=== PATIENT | male | born 1940 | race Two or more races ===

== ENCOUNTER 2024-02-12 05:47 | Inpatient (IN) | payer SELFPAY ==
[~2024-02-12] VITALS: Ht 170.2 cm; Wt 88.0 kg
[2024-02-12] VITALS (8 sets, daily range): BP systolic 100–116; BP diastolic 50–56; TEMP 97.5–98.6; O2SAT 97–100
[2024-02-12] MEDS: LIDOCAINE 2% 5ML JELLY UROJET TOP ONE (07:50)
[2024-02-12 09:01] LABS: BASO % 0.7 % (0.0-1.0); EOS # 0.2 10^3/uL (0.0-0.5); EOS % 3.7 % (0.0-3.0); HEMATOCRIT 26.3 % (42.0-52.0); HEMOGLOBIN 8.5 g/dl (13.5-17.5); LYMPH # 1.1 10^3/uL (1.5-5.0); LYMPH % 20.2 % (24.0-44.0); MEAN CORPUSCULAR HEMOGLOBIN 26.2 pg (27.0-33.0); MEAN CORPUSCULAR HGB CONC 32.3 g/dl (32.0-36.5); MEAN CORPUSCULAR VOLUME 81.2 fl (80.0-96.0); MONO # 0.8 10^3/uL (0.0-0.8); MONO % 14.7 % (2.0-8.0); NEUTROPHILS # 3.3 10^3/uL (1.5-8.5); NEUTROPHILS % 60.3 % (36.0-66.0); PLATELET COUNT, AUTOMATED 241 10^3/uL (150-450); RED BLOOD COUNT 3.24 10^6/uL (4.30-6.10); WHITE BLOOD COUNT 5.5 10^3/uL (4.0-10.0)
[2024-02-12 09:25] LABS: BLOOD UREA NITROGEN 39 MG/DL (9-23); CALCIUM LEVEL 9.1 MG/DL (8.3-10.6); CARBON DIOXIDE LEVEL 24 MMOL/L (20-31); CHLORIDE LEVEL 105 MMOL/L (98-107); CREATININE FOR GFR 1.79 MG/DL (0.70-1.30); GLOMERULAR FILTRATION RATE 38.6 (>35); GLUCOSE, FASTING 96 MG/DL (74-106); POTASSIUM SERUM 4.9 MMOL/L (3.5-5.1); SODIUM LEVEL 135 MMOL/L (136-145)
[2024-02-12 09:33] LABS: INR 1.04; PROTHROMBIN TIME 13.3 SECONDS (12.5-14.5)
[2024-02-12] MEDS ORDERED: ISOVUE-370 76% 100ML VIAL As Ordered ONE (09:50)
[2024-02-12 11:22] LABS: ALBUMIN 3.4 G/DL (3.2-5.2); ALKALINE PHOSPHATASE 191 U/L (46-116); ALT/SGPT 15 U/L (7.0-40); AST/SGOT 24 U/L (<34); BILIRUBIN,DIRECT < 0.1 MG/DL (<0.4); BILIRUBIN,TOTAL 0.2 MG/DL (0.3-1.2); TOTAL PROTEIN 6.3 G/DL (5.7-8.2)
[2024-02-12] MEDS ORDERED: GLIM4TAB5 PO (11:25)
[2024-02-12] MEDS ORDERED: METF10004 PO (11:25)
[2024-02-12] MEDS ORDERED: ASPI81TA26 PO (11:25)
[2024-02-12] MEDS ORDERED: HOME MED LIST COMPLETE! XX SCH ×2 (11:30→14:35)
[2024-02-12] MEDS ORDERED: INSULIN LISPRO (NovoLOG) PER UNIT SC SCH (12:00)
[2024-02-12 14:22] LABS: HEMATOCRIT 27.2 % (42.0-52.0); HEMOGLOBIN 8.7 g/dl (13.5-17.5); MEAN CORPUSCULAR HEMOGLOBIN 26.2 pg (27.0-33.0); MEAN CORPUSCULAR VOLUME 81.9 fl (80.0-96.0); PLATELET COUNT, AUTOMATED 212 10^3/uL (150-450); RED BLOOD COUNT 3.32 10^6/uL (4.30-6.10); WHITE BLOOD COUNT 4.1 10^3/uL (4.0-10.0)
[2024-02-12] MEDS ORDERED: CIPR250T3 PO (14:25)
[2024-02-12] MEDS ORDERED: SODI325T9 PO (14:29)
[2024-02-12] MEDS ORDERED: DUTA1CAP10 PO (14:29)
[2024-02-12] MEDS ORDERED: RAMI2.5C42 PO (14:29)
[2024-02-12 14:40] LABS: CALCIUM LEVEL 8.9 MG/DL (8.3-10.6); CREATININE FOR GFR 1.64 MG/DL (0.70-1.30); GLOMERULAR FILTRATION RATE 42.7 (>35); POTASSIUM SERUM 4.1 MMOL/L (3.5-5.1)
[2024-02-12 15:03] LABS: THYROID STIMULATING HORMONE 0.211 uIU/ML (0.55-4.78)
[2024-02-12 15:04] LABS: FREE T4 1.38 NG/DL (0.89-1.76)
[2024-02-12] MEDS: INSULIN LISPRO (NovoLOG) PER UNIT SC SCH (17:15)
[2024-02-12 21:54] LABS: HEMATOCRIT 26.1 % (42.0-52.0); HEMOGLOBIN 8.5 g/dl (13.5-17.5); MEAN CORPUSCULAR HEMOGLOBIN 26.2 pg (27.0-33.0); MEAN CORPUSCULAR HGB CONC 32.6 g/dl (32.0-36.5); MEAN CORPUSCULAR VOLUME 80.6 fl (80.0-96.0); PLATELET COUNT, AUTOMATED 239 10^3/uL (150-450); RED BLOOD COUNT 3.24 10^6/uL (4.30-6.10); WHITE BLOOD COUNT 6.3 10^3/uL (4.0-10.0)
[2024-02-12 22:21] LABS: HEMOGLOBIN A1c 6.5 % (4.0-6.0)
[2024-02-13] VITALS (29 sets, daily range): BP systolic 114–130; BP diastolic 58–61; TEMP 97.3–99.3; O2SAT 95–100
[2024-02-13 06:40] LABS: HEMATOCRIT 25.1 % (42.0-52.0); MEAN CORPUSCULAR HEMOGLOBIN 25.9 pg (27.0-33.0); MEAN CORPUSCULAR HGB CONC 31.9 g/dl (32.0-36.5); MEAN CORPUSCULAR VOLUME 81.2 fl (80.0-96.0); PLATELET COUNT, AUTOMATED 225 10^3/uL (150-450); RED BLOOD COUNT 3.09 10^6/uL (4.30-6.10); WHITE BLOOD COUNT 5.7 10^3/uL (4.0-10.0)
[2024-02-13 07:08] LABS: CALCIUM LEVEL 8.9 MG/DL (8.3-10.6); CREATININE FOR GFR 1.78 MG/DL (0.70-1.30); GLOMERULAR FILTRATION RATE 38.9 (>35); MAGNESIUM LEVEL 2.1 MG/DL (1.8-2.4); POTASSIUM SERUM 4.3 MMOL/L (3.5-5.1)
[2024-02-13] MEDS: BISACODYL 10MG SUPP PR ONE (17:50)
[2024-02-13] MEDS: SENNA 8.6 MG TAB (SENOKOT) PO SCH (20:41)
[2024-02-14] VITALS (15 sets, daily range): BP systolic 112–159; BP diastolic 55–70; TEMP 97.8–98.8; O2SAT 95–100
[2024-02-14 05:19] LABS: HEMATOCRIT 25.3 % (42.0-52.0); MEAN CORPUSCULAR HEMOGLOBIN 25.6 pg (27.0-33.0); MEAN CORPUSCULAR HGB CONC 31.6 g/dl (32.0-36.5); MEAN CORPUSCULAR VOLUME 80.8 fl (80.0-96.0); PLATELET COUNT, AUTOMATED 223 10^3/uL (150-450); RED BLOOD COUNT 3.13 10^6/uL (4.30-6.10); WHITE BLOOD COUNT 5.7 10^3/uL (4.0-10.0)
[2024-02-14 05:42] LABS: CALCIUM LEVEL 8.4 MG/DL (8.3-10.6); CREATININE FOR GFR 1.59 MG/DL (0.70-1.30); GLOMERULAR FILTRATION RATE 44.3 (>35); MAGNESIUM LEVEL 1.9 MG/DL (1.8-2.4)
[2024-02-14] MEDS: ANALGESIC BALM CRM 3OZ TOP PRN (10:13)
[2024-02-14 11:06] LABS: PERCENT SATURATION 6.8 % (19.7-50.0)
[2024-02-14 11:09] LABS: FERRITIN 92.7 NG/ML (10.5-307.3)
[2024-02-14] MEDS: ACETAMINOPHEN 325 MG TAB PO SCH (11:13)
[2024-02-14] MEDS: oxyCODONE 5MG TAB PO ONE ×2 (11:20→15:21)
[2024-02-14 11:24] LABS: C REACTIVE PROTEIN QUANTITATIV 4.8 MG/DL (<1.0)
[2024-02-14 11:32] LABS: ERYTHROCYTE SEDIMENTATION RATE 42 mm/hr (0-20)
[2024-02-14] MEDS: LR 500 ML IV SCH (12:04)
[2024-02-14] MEDS: IRON SUCROSE 100MG 5ML VIAL IV SCH (15:21)
[2024-02-14 15:51] LABS: URIC ACID 5.9 MG/DL (3.7-9.2)
[2024-02-14 17:24] LABS: CALCIUM LEVEL 8.3 MG/DL (8.3-10.6); CREATININE FOR GFR 1.49 MG/DL (0.70-1.30); GLOMERULAR FILTRATION RATE 47.7 (>35)
[2024-02-14] MEDS ORDERED: oxyCODONE 5MG TAB PO PRN (18:40)
[2024-02-15 04:00] VITALS: BP 127/61; TEMP 97.8; O2SAT 98
[2024-02-15 06:51] LABS: HEMATOCRIT 25.4 % (42.0-52.0); HEMOGLOBIN 8.1 g/dl (13.5-17.5); MEAN CORPUSCULAR HEMOGLOBIN 25.7 pg (27.0-33.0); MEAN CORPUSCULAR HGB CONC 31.9 g/dl (32.0-36.5); MEAN CORPUSCULAR VOLUME 80.6 fl (80.0-96.0); PLATELET COUNT, AUTOMATED 243 10^3/uL (150-450); RED BLOOD COUNT 3.15 10^6/uL (4.30-6.10); WHITE BLOOD COUNT 6.1 10^3/uL (4.0-10.0)
[2024-02-15 07:21] LABS: CALCIUM LEVEL 8.6 MG/DL (8.3-10.6); CREATININE FOR GFR 1.46 MG/DL (0.70-1.30); GLOMERULAR FILTRATION RATE 48.9 (>35); MAGNESIUM LEVEL 1.8 MG/DL (1.8-2.4); POTASSIUM SERUM 4.2 MMOL/L (3.5-5.1)
[2024-02-15 08:00] VITALS: BP 128/59; TEMP 97.8; O2SAT 95
[2024-02-15 12:00] VITALS: BP 129/60; TEMP 97.8; O2SAT 97
[2024-02-15] MEDS: MIRALAX *UNIT DOSE* 17GM PACKET PO PRN (14:32)
[2024-02-15] MEDS: predniSONE 20 MG TAB PO SCH (14:33)
[2024-02-15 15:48] LABS: PSA % FREE UNABLE TO CALCULATE % (calc) (>25); PSA FREE < 0.1 ng/mL; PSA TOTAL 0.1 ng/mL (< OR = 4.0)
[2024-02-15 16:00] VITALS: BP 133/60; TEMP 98.4; O2SAT 91
[2024-02-15] MEDS: BISACODYL 10MG SUPP PR PRN (19:55)
[2024-02-15 19:57] VITALS: BP 106/58; TEMP 98; O2SAT 96
[2024-02-16] VITALS (7 sets, daily range): BP systolic 100–129; BP diastolic 49–74; TEMP 97.6–98.2; O2SAT 94–99
[2024-02-16 06:42] LABS: HEMATOCRIT 25.3 % (42.0-52.0); HEMOGLOBIN 8.2 g/dl (13.5-17.5); MEAN CORPUSCULAR HEMOGLOBIN 25.9 pg (27.0-33.0); MEAN CORPUSCULAR HGB CONC 32.4 g/dl (32.0-36.5); MEAN CORPUSCULAR VOLUME 79.8 fl (80.0-96.0); PLATELET COUNT, AUTOMATED 275 10^3/uL (150-450); RED BLOOD COUNT 3.17 10^6/uL (4.30-6.10); WHITE BLOOD COUNT 7.4 10^3/uL (4.0-10.0)
[2024-02-16 07:18] LABS: CALCIUM LEVEL 8.8 MG/DL (8.3-10.6); CREATININE FOR GFR 1.36 MG/DL (0.70-1.30); MAGNESIUM LEVEL 1.9 MG/DL (1.8-2.4); POTASSIUM SERUM 4.3 MMOL/L (3.5-5.1)
[2024-02-16] MEDS: FINASTERIDE 5MG TAB PO SCH (16:19)
[2024-02-16] MEDS: TAMSULOSIN 0.4 MG CAP PO SCH (16:19)
[2024-02-16] MEDS: FERROUS GLUCONATE 324 MG TAB PO ONE (16:45)
[2024-02-16] MEDS: GLIMEPIRIDE 2 MG TAB PO SCH (20:51)
[2024-02-17] VITALS: BP 107/57; TEMP 98.2; O2SAT 97
[2024-02-17 04:00] VITALS: BP 112/58; TEMP 98.6; O2SAT 100
[2024-02-17 07:47] LABS: HEMATOCRIT 24.1 % (42.0-52.0); HEMOGLOBIN 7.7 g/dl (13.5-17.5); MEAN CORPUSCULAR HEMOGLOBIN 25.9 pg (27.0-33.0); MEAN CORPUSCULAR VOLUME 81.1 fl (80.0-96.0); PLATELET COUNT, AUTOMATED 279 10^3/uL (150-450); RED BLOOD COUNT 2.97 10^6/uL (4.30-6.10); WHITE BLOOD COUNT 7.6 10^3/uL (4.0-10.0)
[2024-02-17 08:00] VITALS: BP 107/55; TEMP 97.4; O2SAT 93
[2024-02-17 08:10] LABS: CALCIUM LEVEL 8.7 MG/DL (8.3-10.6); CHOLESTEROL RISK RATIO 3.21 (<5); CREATININE FOR GFR 1.44 MG/DL (0.70-1.30); GLOMERULAR FILTRATION RATE 49.6 (>35); HDL CHOLESTEROL 43.6 MG/DL (>40); LDL CHOLESTEROL 75.8 MG/DL (<100); NON-HDL-C 96.4 MG/DL; POTASSIUM SERUM 3.9 MMOL/L (3.5-5.1)
[2024-02-17] MEDS: FERROUS SULFATE 325MG TAB PO SCH (09:04)
[2024-02-17] MEDS: LIDOCAINE 5% (LIDODERM) PATCH TD SCH (10:49)
[2024-02-17 12:00] VITALS: BP 116/68; TEMP 97.9; O2SAT 98
[2024-02-17 16:00] VITALS: BP 111/53; TEMP 97.8; O2SAT 94
[2024-02-17 20:15] VITALS: BP 110/54; TEMP 98.8; O2SAT 99
[2024-02-17] MEDS: METHOCARBAMOL 1,000 MG/10 ML VIAL IV ONE (20:56)
[2024-02-17] MEDS ORDERED: PILL CUTTER 1 EACH XX PRN (23:45)
[2024-02-18] VITALS (9 sets, daily range): BP systolic 120–139; BP diastolic 58–67; TEMP 97.7–98.6; O2SAT 96–100
[2024-02-18] MEDS: oxyCODONE 5MG TAB PO SCH (00:11)
[2024-02-18] MEDS ORDERED: methocarbamoL 500 MG TAB PO PRN (02:00)
[2024-02-18 06:43] LABS: HEMATOCRIT 24.2 % (42.0-52.0); HEMOGLOBIN 7.7 g/dl (13.5-17.5); MEAN CORPUSCULAR HGB CONC 31.8 g/dl (32.0-36.5); MEAN CORPUSCULAR VOLUME 81.8 fl (80.0-96.0); PLATELET COUNT, AUTOMATED 291 10^3/uL (150-450); RED BLOOD COUNT 2.96 10^6/uL (4.30-6.10); WHITE BLOOD COUNT 7.3 10^3/uL (4.0-10.0)
[2024-02-18 07:05] LABS: CALCIUM LEVEL 9.1 MG/DL (8.3-10.6); CREATININE FOR GFR 1.36 MG/DL (0.70-1.30); POTASSIUM SERUM 4.1 MMOL/L (3.5-5.1)
[2024-02-19] VITALS (8 sets, daily range): BP systolic 102–137; BP diastolic 45–69; TEMP 97.7–98.6; O2SAT 95–99
[2024-02-19 05:50] LABS: HEMATOCRIT 26.3 % (42.0-52.0); HEMOGLOBIN 8.4 g/dl (13.5-17.5); MEAN CORPUSCULAR HEMOGLOBIN 26.3 pg (27.0-33.0); MEAN CORPUSCULAR HGB CONC 31.9 g/dl (32.0-36.5); MEAN CORPUSCULAR VOLUME 82.4 fl (80.0-96.0); PLATELET COUNT, AUTOMATED 280 10^3/uL (150-450); RED BLOOD COUNT 3.19 10^6/uL (4.30-6.10); WHITE BLOOD COUNT 6.9 10^3/uL (4.0-10.0)
[2024-02-19 06:07] LABS: CALCIUM LEVEL 8.7 MG/DL (8.3-10.6); CREATININE FOR GFR 1.31 MG/DL (0.70-1.30); GLOMERULAR FILTRATION RATE 55.4 (>35); POTASSIUM SERUM 4.2 MMOL/L (3.5-5.1)
[2024-02-19] MEDS ORDERED: oxyCODONE 5MG TAB PO SCH (09:00)
[2024-02-19] MEDS: ASPIRIN 81MG ENTERIC TABLET PO SCH (10:07)
[2024-02-19] MEDS: oxyCODONE 5MG TAB PO SCH (10:08)
[2024-02-19] MEDS: GABAPENTIN 100 MG CAP PO SCH (10:08)
[2024-02-19] MEDS: FUROSEMIDE 40MG/4ML VIAL IV ONE (16:22)
[2024-02-19] MEDS ORDERED: NALOXONE INJ 0.4MG/1ML VIAL IV PRN (22:10)
[2024-02-20 04:00] VITALS: BP 118/63; TEMP 98.4; O2SAT 98
[2024-02-20 06:10] LABS: BASO # 0.1 10^3/uL (0.0-0.2); BASO % 0.6 % (0.0-1.0); EOS % 0.2 % (0.0-3.0); HEMATOCRIT 31.3 % (42.0-52.0); HEMOGLOBIN 10.1 g/dl (13.5-17.5); LYMPH # 0.8 10^3/uL (1.5-5.0); LYMPH % 8.9 % (24.0-44.0); MEAN CORPUSCULAR HEMOGLOBIN 26.6 pg (27.0-33.0); MEAN CORPUSCULAR HGB CONC 32.3 g/dl (32.0-36.5); MEAN CORPUSCULAR VOLUME 82.6 fl (80.0-96.0); MONO # 0.7 10^3/uL (0.0-0.8); MONO % 7.7 % (2.0-8.0); NEUTROPHILS % 80.9 % (36.0-66.0); PLATELET COUNT, AUTOMATED 278 10^3/uL (150-450); RED BLOOD COUNT 3.79 10^6/uL (4.30-6.10); WHITE BLOOD COUNT 8.7 10^3/uL (4.0-10.0)
[2024-02-20 06:32] LABS: ALBUMIN 2.6 G/DL (3.2-5.2); ALKALINE PHOSPHATASE 127 U/L (46-116); ALT/SGPT 19 U/L (7.0-40); AST/SGOT < 8 U/L (<34); BILIRUBIN,TOTAL 0.3 MG/DL (0.3-1.2); BLOOD UREA NITROGEN 45 MG/DL (9-23); CALCIUM LEVEL 9.1 MG/DL (8.3-10.6); CARBON DIOXIDE LEVEL 24 MMOL/L (20-31); CHLORIDE LEVEL 106 MMOL/L (98-107); CREATININE FOR GFR 1.34 MG/DL (0.70-1.30); GLOMERULAR FILTRATION RATE 53.9 (>35); GLUCOSE, FASTING 161 MG/DL (74-106); MAGNESIUM LEVEL 2.1 MG/DL (1.8-2.4); POTASSIUM SERUM 4.5 MMOL/L (3.5-5.1); SODIUM LEVEL 138 MMOL/L (136-145); TOTAL PROTEIN 5.5 G/DL (5.7-8.2)
[2024-02-20] MEDS: ACETAMINOPHEN 500 MG TAB PO SCH (16:34)
[2024-02-20 20:00] VITALS: BP 116/66; TEMP 98.1; O2SAT 95
[2024-02-21] VITALS: O2SAT 95
[2024-02-21 04:00] VITALS: O2SAT 97
[2024-02-21 04:01] VITALS: BP 145/76; TEMP 97.7; O2SAT 97
[2024-02-21 05:32] VITALS: O2SAT 99
[2024-02-21] MEDS: oxyCODONE 5MG TAB PO SCH (16:21)
[2024-02-21 20:00] VITALS: BP 127/61; TEMP 97.7; O2SAT 97
[2024-02-22 12:00] VITALS: BP 118/54; TEMP 98.1; O2SAT 98
[2024-02-22 20:00] VITALS: BP 120/56; TEMP 98.6; O2SAT 97
[2024-02-22] MEDS: DOCUSATE SODIUM 100MG CAPSULE PO SCH (20:52)
[2024-02-22] MEDS: MIRALAX *UNIT DOSE* 17GM PACKET PO SCH (20:52)
[2024-02-23 04:00] VITALS: BP 116/69; TEMP 97.7; O2SAT 94
[2024-02-23] MEDS ORDERED: GABA-1171 PO (11:18)
[2024-02-23] MEDS ORDERED: MIRA33506 PO (11:18)
[2024-02-23] MEDS ORDERED: ACET-683 PO (11:18)
[2024-02-23] MEDS ORDERED: FERR1TAB8 PO (11:18)
[2024-02-23] MEDS ORDERED: OXYC-517 PO ×2 (11:18→11:19)
[2024-02-23] MEDS ORDERED: BISA10SU PR (11:18)
[2024-02-23] MEDS ORDERED: SENN1TAB85 PO (11:18)
[2024-02-23 12:00] VITALS: BP 112/57; TEMP 98.2; O2SAT 99
[2024-02-23] MEDS ORDERED: LIDO1ADH20 TP (12:08)
== END 2024-02-23 13:12 | disposition home or self-care (01) | DRG 468 ==
LOC: M ED 05:47 → M ED INP 12:44 → M PCU 15:35 → M MS4PR 02-14 22:48 → M MSPAV 02-18 15:45
PROVIDERS: ADMIT Student in an Organized Health Care Education/Training Program; ATTEND Internal Medicine Nephrology
PROC: B246ZZZ Ultrasonography of Right and Left Heart (ICD-10-PCS; principal; 2024-02-15)
PROC: 30233N1 Transfusion of Nonautologous Red Blood Cells into Peripheral Vein, Percutaneous Approach (ICD-10-PCS; 2024-02-18)
DX: N32.89 Other specified disorders of bladder (principal); N17.9 Acute kidney failure, unspecified; E11.22 Type 2 diabetes mellitus with diabetic chronic kidney disease; I13.0 Hypertensive heart and chronic kidney disease with heart failure and stage 1 through stage 4 chronic kidney disease, or unspecified chronic kidney disease; D62 Acute posthemorrhagic anemia; N30.41 Irradiation cystitis with hematuria; I50.42 Chronic combined systolic (congestive) and diastolic (congestive) heart failure; N28.1 Cyst of kidney, acquired; N18.30 Chronic kidney disease, stage 3 unspecified; K76.89 Other specified diseases of liver; D63.0 Anemia in neoplastic disease; C61 Malignant neoplasm of prostate; I25.10 Atherosclerotic heart disease of native coronary artery without angina pectoris; M25.562 Pain in left knee; M25.462 Effusion, left knee; M17.12 Unilateral primary osteoarthritis, left knee; M10.9 Gout, unspecified; N26.1 Atrophy of kidney (terminal); R33.9 Retention of urine, unspecified; E78.5 Hyperlipidemia, unspecified; K59.00 Constipation, unspecified; D50.9 Iron deficiency anemia, unspecified; Z95.5 Presence of coronary angioplasty implant and graft; Z90.49 Acquired absence of other specified parts of digestive tract; Z92.3 Personal history of irradiation; Z79.82 Long term (current) use of aspirin; Z79.899 Other long term (current) drug therapy; Z79.84 Long term (current) use of oral hypoglycemic drugs; Z88.8 Allergy status to other drugs, medicaments and biological substances

== ENCOUNTER → 2024-02-26 | Outpatient (REF) | payer SELFPAY ==
[~2024-02-26] MED LIST: ACET-683 PO; ASPI81TA26 PO; BISA10SU PR; CIPR250T3 PO; DUTA1CAP10 PO; FERR1TAB8 PO; GABA-1171 PO; GLIM4TAB5 PO; LIDO1ADH20 TP; METF10004 PO; MIRA33506 PO; OXYC-517 PO; RAMI2.5C42 PO; SENN1TAB85 PO; SODI325T9 PO
[2024-02-26 17:30] LABS: APPEARANCE, URINE CLEAR (CLEAR); BACTERIA, URINE AUTO NEGATIVE (NEGATIVE); BILIRUBIN, URINE AUTO NEGATIVE (NEGATIVE); BLOOD, URINE BLOOD NEGATIVE (NEGATIVE); COLOR, URINE YELLOW (YELLOW); GLUCOSE, URINE (UA) AUTO NEGATIVE (NEGATIVE); KETONE, URINE AUTO NEGATIVE (NEGATIVE); LEUKOCYTE ESTERASE, URINE AUTO NEGATIVE (NEGATIVE); MUCUS, URINE SMALL (NEGATIVE); NITRITE, URINE AUTO NEGATIVE (NEGATIVE); PROTEIN, URINE AUTO NEGATIVE (NEGATIVE); RBC, URINE AUTO 0 /HPF (0-3); SPECIFIC GRAVITY URINE AUTO 1.017 (1.002-1.035); SQUAMOUS EPITHELIAL CELL UR AU 0 /HPF (0-6); UROBILINOGEN, URINE AUTO 0.2 mg/dL (0.0-2.0); WBC, URINE AUTO 1 /HPF (0-3)
[2024-02-26 18:19] LABS: CREATININE, URINE 116.6 MG/DL
[2024-02-26 18:20] LABS: MAU/CREAT RATIO 59.1 MCG/MG (0.0-30.0)
[2024-02-26 18:40] LABS: BASO % 0.6 % (0.0-1.0); EOS # 0.2 10^3/uL (0.0-0.5); EOS % 3.1 % (0.0-3.0); HEMATOCRIT 37.7 % (42.0-52.0); HEMOGLOBIN 11.7 g/dl (13.5-17.5); LYMPH % 20.3 % (24.0-44.0); MEAN CORPUSCULAR HEMOGLOBIN 26.9 pg (27.0-33.0); MEAN CORPUSCULAR VOLUME 86.7 fl (80.0-96.0); MONO # 0.7 10^3/uL (0.0-0.8); MONO % 13.4 % (2.0-8.0); NEUTROPHILS # 3.1 10^3/uL (1.5-8.5); NEUTROPHILS % 61.6 % (36.0-66.0); PLATELET COUNT, AUTOMATED 292 10^3/uL (150-450); RED BLOOD COUNT 4.35 10^6/uL (4.30-6.10); WHITE BLOOD COUNT 5.1 10^3/uL (4.0-10.0)
[2024-02-26 19:17] LABS: THYROID STIMULATING HORMONE 0.028 uIU/ML (0.55-4.78)
[2024-02-26 19:20] LABS: HEMOGLOBIN A1c 6.3 % (4.0-6.0)
[2024-02-26 19:22] LABS: ALBUMIN 3.3 G/DL (3.2-5.2); BILIRUBIN,TOTAL 0.3 MG/DL (0.3-1.2); CALCIUM LEVEL 9.5 MG/DL (8.3-10.6); CHOLESTEROL RISK RATIO 4.42 (<5); CREATININE FOR GFR 1.32 MG/DL (0.70-1.30); GLOMERULAR FILTRATION RATE 54.9 (>35); HDL CHOLESTEROL 44.1 MG/DL (>40); LDL CHOLESTEROL 105.5 MG/DL (<100); NON-HDL-C 150.9 MG/DL; POTASSIUM SERUM 5.2 MMOL/L (3.5-5.1); TOTAL PROTEIN 6.4 G/DL (5.7-8.2)
== END ==
LOC: M LAB REF 16:18
PROVIDERS: ATTEND Physician Assistant
DX: I50.9 Heart failure, unspecified (principal); E11.9 Type 2 diabetes mellitus without complications; R30.0 Dysuria; N17.9 Acute kidney failure, unspecified; D64.9 Anemia, unspecified

== ENCOUNTER → 2024-02-29 | Outpatient (REF) | payer SELFPAY ==
[2024-02-29 13:54] LABS: AMORPHOUS SEDIMENT SMALL (NEGATIVE); APPEARANCE, URINE HAZY (CLEAR); BACTERIA, URINE AUTO NEGATIVE (NEGATIVE); BILIRUBIN, URINE AUTO NEGATIVE (NEGATIVE); BLOOD, URINE BLOOD NEGATIVE (NEGATIVE); COLOR, URINE YELLOW (YELLOW); GLUCOSE, URINE (UA) AUTO NEGATIVE (NEGATIVE); KETONE, URINE AUTO NEGATIVE (NEGATIVE); LEUKOCYTE ESTERASE, URINE AUTO NEGATIVE (NEGATIVE); NITRITE, URINE AUTO NEGATIVE (NEGATIVE); PROTEIN, URINE AUTO NEGATIVE (NEGATIVE); RBC, URINE AUTO 0 /HPF (0-3); SPECIFIC GRAVITY URINE AUTO 1.016 (1.002-1.035); SQUAMOUS EPITHELIAL CELL UR AU 0 /HPF (0-6); UROBILINOGEN, URINE AUTO 0.2 mg/dL (0.0-2.0); WBC, URINE AUTO 1 /HPF (0-3)
== END ==
LOC: M SMT 12:49
PROVIDERS: ATTEND Urology
DX: R30.0 Dysuria (principal)

== ENCOUNTER → 2024-03-09 | Outpatient (CLI) | payer SELFPAY ==
[~2024-03-09] MED LIST changes: +CYAN500T14 PO; +ELIQ5TAB PO; +FLOM0.4C39 PO; +SENN-23 PO; +[UNRECOGNIZED DRUG - REMARK] PO
[2024-03-09 11:57] LABS: HEMATOCRIT 39.8 % (42.0-52.0); HEMOGLOBIN 12.3 g/dl (13.5-17.5); MEAN CORPUSCULAR HEMOGLOBIN 26.3 pg (27.0-33.0); MEAN CORPUSCULAR HGB CONC 30.9 g/dl (32.0-36.5); PLATELET COUNT, AUTOMATED 260 10^3/uL (150-450); RED BLOOD COUNT 4.68 10^6/uL (4.30-6.10); WHITE BLOOD COUNT 4.4 10^3/uL (4.0-10.0)
[2024-03-09 12:25] LABS: CALCIUM LEVEL 9.8 MG/DL (8.3-10.6); CREATININE FOR GFR 1.46 MG/DL (0.70-1.30); GLOMERULAR FILTRATION RATE 48.9 (>35); POTASSIUM SERUM 4.9 MMOL/L (3.5-5.1); PROSTATIC SPECIFIC AG MONITOR 0.13 NG/ML (< 4.00)
== END ==
LOC: M LAB 10:33
PROVIDERS: ATTEND Urology
DX: Z01.818 Encounter for other preprocedural examination (principal); N32.89 Other specified disorders of bladder; C61 Malignant neoplasm of prostate

== ENCOUNTER 2024-03-16 06:24 | Day surgery (SDC) | payer SELFPAY ==
[~2024-03-16] VITALS: Ht 175.3 cm; Wt 82.6 kg
[2024-03-16] MEDS ORDERED: ONDANSETRON 4MG 2ML VIAL As Ordered ONE (06:42)
[2024-03-16] MEDS ORDERED: dexmedeTOMIDine (4MCG/ML)200MCG/50ML BTL (PRECEDEX) As Ordered ONE (06:42)
[2024-03-16] MEDS ORDERED: VASOPRESSIN INJ 20UNITS/ML 1ML VIAL As Ordered ONE (06:42)
[2024-03-16] MEDS ORDERED: LIDOCAINE 2% 100MG/5ML SDV (FOR ANES.) As Ordered ONE (06:43)
[2024-03-16] MEDS ORDERED: propofoL 200 MG/20 ML VIAL As Ordered ONE (06:43)
[2024-03-16] MEDS ORDERED: SUGAMMADEX SODIUM 500 MG/5 ML VIAL (BRIDION) As Ordered ONE (06:43)
[2024-03-16] MEDS ORDERED: ROCURONIUM BROMIDE 50MG/5ML VIAL As Ordered ONE (06:43)
[2024-03-16] MEDS ORDERED: fentaNYL 100 MCG/2 ML INJECTION As Ordered ONE (06:52)
[2024-03-16] MEDS ORDERED: NS 250 ML IV SCH ×2 (07:00→08:15)
[2024-03-16] MEDS: ceFAZolin SOD 2 GM in IV 1 EA IV ONE (07:29)
[2024-03-16] MEDS ORDERED: fentaNYL 100 MCG/2 ML INJECTION IV PRN (08:15)
[2024-03-16] MEDS ORDERED: ONDANSETRON 4MG 2ML VIAL IV PRN (08:15)
[2024-03-16] MEDS ORDERED: HYDROMORPHONE HCL 0.5 MG/ 0.5 ML SYRINGE IV PRN (08:15)
[2024-03-16] MEDS: oxyCODONE 5MG TAB PO PRN (08:39)
[2024-03-16] MEDS ORDERED: ACETAMINOPHEN 325 MG TAB PO PRN (09:15)
[2024-03-16] MEDS ORDERED: KETOROLAC 30 MG/ML 1ML VIAL IV ONE (10:15)
[2024-03-16] MEDS: KETOROLAC 30 MG/ML 1ML VIAL IV ONE (10:34)
[2024-03-16 11:45] VITALS: BP 123/60; TEMP 96.9; O2SAT 100
== END 2024-03-16 12:01 | disposition home or self-care (01) ==
LOC: M SDC 06:24
PROVIDERS: ATTEND Urology
DX: C67.9 Malignant neoplasm of bladder, unspecified (principal); N30.80 Other cystitis without hematuria; I25.10 Atherosclerotic heart disease of native coronary artery without angina pectoris; E11.9 Type 2 diabetes mellitus without complications; Z95.5 Presence of coronary angioplasty implant and graft; N28.9 Disorder of kidney and ureter, unspecified; Z79.899 Other long term (current) drug therapy
CPT/HCPCS: 52234; 88305; J0690; J1100; J1885; J2405; J2598; J3010

== ENCOUNTER → 2024-04-06 | Outpatient (REF) | payer SELFPAY ==
[2024-04-06 18:17] LABS: BASO # 0.1 10^3/uL (0.0-0.2); BASO % 1.8 % (0.0-1.0); EOS # 0.4 10^3/uL (0.0-0.5); EOS % 7.4 % (0.0-3.0); HEMATOCRIT 40.6 % (42.0-52.0); HEMOGLOBIN 12.8 g/dl (13.5-17.5); LYMPH # 1.6 10^3/uL (1.5-5.0); LYMPH % 31.1 % (24.0-44.0); MEAN CORPUSCULAR HEMOGLOBIN 26.2 pg (27.0-33.0); MEAN CORPUSCULAR HGB CONC 31.5 g/dl (32.0-36.5); MONO # 0.5 10^3/uL (0.0-0.8); MONO % 9.4 % (2.0-8.0); NEUTROPHILS # 2.5 10^3/uL (1.5-8.5); NEUTROPHILS % 49.7 % (36.0-66.0); PLATELET COUNT, AUTOMATED 238 10^3/uL (150-450); RED BLOOD COUNT 4.89 10^6/uL (4.30-6.10); WHITE BLOOD COUNT 5.1 10^3/uL (4.0-10.0)
[2024-04-06 18:37] LABS: URIC ACID 6.3 MG/DL (3.7-9.2)
[2024-04-06 18:40] LABS: IRON (FE) 84 UG/DL (65-175); PERCENT SATURATION 33.2 % (19.7-50.0); TOTAL IRON BINDING CAPACITY 253 UG/DL (250-425)
[2024-04-06 18:41] LABS: ALBUMIN 3.5 G/DL (3.2-5.2); ALKALINE PHOSPHATASE 189 U/L (40-129); ALT/SGPT 18 U/L (7.0-40); AST/SGOT < 8 U/L (<34); BILIRUBIN,TOTAL 0.4 MG/DL (0.3-1.2); BLOOD UREA NITROGEN 25 MG/DL (9-23); CARBON DIOXIDE LEVEL 26 MMOL/L (20-31); CHLORIDE LEVEL 110 MMOL/L (98-107); CREATININE FOR GFR 1.28 MG/DL (0.70-1.30); FERRITIN 374.7 NG/ML (10.5-307.3); GLOMERULAR FILTRATION RATE 56.9 (>35); GLUCOSE, FASTING 132 MG/DL (74-106); POTASSIUM SERUM 5.5 MMOL/L (3.5-5.1); SODIUM LEVEL 141 MMOL/L (136-145); THYROID STIMULATING HORMONE 0.015 uIU/ML (0.55-4.78); TOTAL PROTEIN 6.5 G/DL (5.7-8.2)
[2024-04-06 18:43] LABS: FREE T4 1.54 NG/DL (0.89-1.76)
== END ==
LOC: M LAB REF 17:43
PROVIDERS: ATTEND Physician Assistant
DX: D64.9 Anemia, unspecified (principal); N18.30 Chronic kidney disease, stage 3 unspecified; R94.6 Abnormal results of thyroid function studies; M79.674 Pain in right toe(s)

== ENCOUNTER → 2024-04-20 | Outpatient (REF) | payer SELFPAY ==
[2024-04-20 17:32] LABS: THYROID PEROXIDASE ANTIBODY < 28.0 U/ML (<60.0)
[2024-04-20 17:34] LABS: THYROGLOBULIN ANTIBODY < 15.0 U/ML (<60.0)
== END ==
LOC: M LAB REF 16:20
PROVIDERS: ATTEND Physician Assistant
DX: R94.6 Abnormal results of thyroid function studies (principal)

== ENCOUNTER → 2024-06-03 | Outpatient (CLI) | payer SELFPAY | LOC: M RAD 15:01 | PROVIDERS: ATTEND Physician Assistant | DX: R94.6 Abnormal results of thyroid function studies (principal) ==

== ENCOUNTER → 2024-06-15 | Outpatient (CLI) | payer SELFPAY ==
[2024-06-15 10:43] LABS: PROSTATIC SPECIFIC AG MONITOR 0.55 NG/ML (< 4.00)
== END ==
LOC: M LAB 09:42
PROVIDERS: ATTEND Urology
DX: C67.9 Malignant neoplasm of bladder, unspecified (principal)

== ENCOUNTER → 2024-06-27 | Outpatient (REF) | payer OTHER ==
[~2024-06-27] MED LIST changes: -FLOM0.4C39 PO; +TAMS-18 PO
== END ==
LOC: M SMT 09:52
PROVIDERS: ATTEND Urology
DX: C67.9 Malignant neoplasm of bladder, unspecified (principal)